=== PATIENT | female | born 2005 | race Caucasian/White ===

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

== ENCOUNTER 2025-02-03 06:05 | Emergency (ER) | payer BC, MEDICAID, SELFPAY ==
--- OUTSIDE RECORDS SUMMARY | 2025-02-03 06:08 | XMS_ITS | Clinical Summary ---
Author Organization [facility] Address [address] [place] [address] Care Team Providers Care Pharmacy Coordinator Name Role Phone Benito Ernst Primary Care Provider [phone] Allergies No known active allergies Medications No known medications Active Problems Problem Noted Date Diagnosed Date Hypothyroidism (acquired) 11/14/2024 Prediabetes 11/14/2024 Morbid obesity with BMI of 40.0-44.9, adult 10/2024 History of anemia 11/11/2024 Regular astigmatism, bilateral 06/09/2024 Myopia, bilateral 06/09/2024 Encounters Date Type Department Care Team Description 11/18/2024 Telephone [facility] [place] [address] [place] [address] Staff, Tami Bariatric Weight Management 11/11/2024 1:00 PM CDT Office Visit [facility] [address] [place] [address] Benito Ernst PA Physical (Patient had baby seven months ago and would like labs) 11/11/2024 Travel from Last 3 Months Immunizations Immunization Administration Dates Next Due COVID-19 vaccine (Pfizer-Bio NTech 30mcg/0.3mL) 12YO+ BIVALENT PF, MDV 12/25/2021 COVID-19 vaccine (Pfizer-Bio NTech 30mcg/0.3mL) 12YO+ AYDIN-SUCROSE PF, MDV 12/01/2020,11/10/2020 DTaP 12/01/2006, 6,2005,10/01 HIB PRP-OMP (PedvaxHIB) 03/05/2006,2005, HPV 9 (Gardasil 9) 12/25/2021 Hepatitis A (Peds) 12/25/2021,02/16/2007, 007 Hepatitis B (Peds) 12/25/2021, 6,2005,08/01 Hib Conjugate, Unspecified 07/31/2009 Human Papilloma Virus Vaccine 11/19/2017, 017 Inactivated Polio Vaccine 12/25/2021,,03/05/2006,12/18,2005 MENINGOCOCCAL VACCINE 2 VIAL 2MO-55YO (MENVEO) 12/25/2021,08/30/2016 MMR 03/11/2024, 2,07/31/2009,08/05 Pneumococcal conj 13-Valent (Prevnar 13) 01/31/2007,10/31/2006,08/05/2006,12/18 Tdap 01/02/2024,12/25/2021,08/30/2016 Varicella Vaccine 03/24/2024,,02/10/2007,08/04 Family History Medical History Relation Name Comments Other Father baratric lanar y Other Half-Sister x 2 1 has epilepsy Bipolar disorder Maternal Grandfather Diabetes Maternal Grandmother prediab etes Glaucoma Maternal Grandmother Hypertension Maternal Grandmother Asthma Mother Other Mother bariatric surge ry Good Health Son Relation Name Status Comments Father Alive Half-Sister x 2 Alive Maternal Grandfather Alive Maternal Grandmother Alive Mother Alive Paternal Grandfather Alive Paternal Grandmother Alive Son Alive Social History Tobacco Use Types Packs/Day Years Used Date Smoking Tobacco: Never Passive Smoke Exposure: Never Smokeless Tobacco: Never Tobacco Cessation:Counseling Given: No Alcohol Use Standard Drinks/Week Comments Never 0 (1 standard drink = 0.6 oz pur e alcohol) PHQ-2 Answer Date Recorded PHQ-2 TOTAL SCORE 0 11/11/2024 Social Connections Answer Date Recorded Do you often feel lonely or isolated from those around you? 0 11/11/2024 Financial Resource Strain Answer Date R ecorded Difficulty of Paying Living Expenses 3 11/11/2024 Difficulty of Paying Living Expenses Not on file 11/11/2024 Food Insecurity Answer Date Recorded Do you worry your food will run out before you are able to buy more? 1 11/11/2024 Transportation Needs Answer Date Record ed Does lack of transportation keep you from medica l appointments? 1 11/11/2024 Does lack of transportation keep you from work, meetings or getting things that you need? 1 11/11/2024 Housing Stability Answer Date Recorded What is your housing situation today? 1 11/11/2024 Utilities Answer Date Recorded Do you have trouble paying f or utilities (for example, heat, electricity, water, phone)? 1 11/11/2024 Comments No Sex and Gender Information Value Date Recorded Sex Assigned at Not on file Legal Sex Female 2:53 PM CDT Gender Identity Not on file Sexual Orientation Not on file Occupation Industry Job Start Date Job End Date Works on floor doing whatever is needed Not on file N ot on file Not on file Obstetrics History Last Filed Vital Signs Vital Sign Reading Time Taken Comments Blood Pressure 120/80 11/11/2024 1:14 PM CDT Pulse 64 11/11/2024 1:14 PM CDT Temperature - - Respiratory Rate - - Oxygen Saturation 97% 03/11/2023 12:01 PM JEWEL OLIVING MACHINE OPERATOR Inhaled Oxygen Concentration - - Weight 124.3 kg (274 lb) 11/11/2024 1:14 PM CDT Height 166.4 cm (5' 5.5) 11/11/2024 1:14 PM CDT Body Mass Index 44.9 11/11/2024 1:14 PM CDT Plan of Treatment Health Maintenance Due Date Last Done Comments Hepatitis C screening for ag e 18-79 07/31/2023 Chlamydia for age 16-24 03/13/2024 03/13/2023 Influenza Vaccine (#1) 2024 BMI (ht and wt on same day) for age 18+ 11/11/2025 11/11/2024 Depression screening for age 12+ 11/11/2025 11/12/19 25, 11/25/2022 Well Child Check for age 3-20 11/11/2025 11/11/2024, 11/25/2022 Tetanus booster 01/01/2034 01/02/2024, 12/07, 08/30/2016 RSV vaccine for adults or (1 - 1-dose 75+ series) 2080 Pneumococcal series for age 6-49 Completed 01/31/2007, 10/31/2006, 08/05/2006, Additional history exists HPV series for age 9-45 Completed 12/26/19, 11/19/2017, 08/30/2016 Hepatitis B series for 19+ Completed 12/25, 03/05/2006, 2005, Additional history exists Meningococcal series for age 11-21 Completed 2021, 08/30/2016 HIV for age 15-65 Completed 03/13/2023 Procedures Procedure Name Priority Date/Time Associated Diagnosis Comments CBC WITH AUTO DIFFERENTIAL Routine 11/11/2024 2:23 PM CDT Encounter for well adult exam without abnormal findings History of anemia LIPID PANEL W REFLEX MEASURED LDL Routine 11/11/2024 2:23 PM CDT Screening for cholesterol level CBC WITH AUTO DIFFERENTIAL Routine 11/11/2024 2:23 PM CDT Encounter for well adult exam without abnormal findings History of anemia HEMOGLOBIN A1C Routine 11/11/2024 2:23 PM CDT Prediabetes TSH WITH REFLEX Routine 11/11/2024 2:23 PM CDT Hypothyroidism (acquired) ANTI HIV 1/2 Routine 03/13/2023 9:35 AM JEWEL OLIVING MACHINE OPERATOR Routine screening for STI (sexually transmitted infection) GC CHLAMYDIA TRACH PROBE Routine 03/13/2023 9:32 AM JEWEL OLIVING MACHINE OPERATOR Routine screening for STI (sexually transmitted infection) from Last 3 Months or Most Recently Relevant to Health Maintenance Results * (ABNORMAL) CBC WITH AUTO DIFFERENTIAL (11/11/2024 2:23 PM CDT) Pathologist [facility] WHITE BLOOD CELL COUNT 8.9 3.8 - 10.8 Thousand/ uL 11/12/2024 3:36 AM CDT [facility] RED BLOOD CELL COUNT 4.70 3.80 - 5.10 Million/u L 11/12/2024 3:36 AM CDT [facility] HEMOGLOBIN 11.6(L) 11.7 - 15.5 g/dL 11/12/2024 3:36 AM CDT [facility] HEMATOCRIT 36.5 35.0 - 45.0 % 11/12/2024 3:36 AM CDT [facility] MCV 77.7(L) 80.0 - 100.0 fL 11/12/2024 3:36 AM CDT [facility] MCH 24.7(L) 27.0 - 33.0 pg 11/12/2024 3:36 AM CDT [facility] MCHC 31.8(L) 32.0 - 36.0 g/dL 11/12/2024 3:36 AM CDT [facility] Comment: For adults, a slight decrease in the calculated MCHC value (in the range of 30 to 32 g/dL) is most likely not clinically significant; however, it should be interpreted with caution in correlation with other red cell parameters and the patient's clinical condition. RDW 15.0 11.0 - 15.0 % 11/12/2024 3:36 AM CDT [facility] PLATELET COUNT 417(H) 140 - 400 Thousand/ uL 11/12/2024 3:36 AM CDT [facility] MPV 10.2 7.5 - 12.5 fL 11/12/2024 3:36 AM CDT [facility] NEUTROPHILS 65.3 % 11/12/2024 3:36 AM CDT [facility] LYMPHOCYTES 26.3 % 11/12/2024 3:36 AM CDT [facility] MONOCYTES 5.8 % 11/12/2024 3:36 AM CDT [facility] EOSINOPHILS 2.1 % 11/12/2024 3:36 AM CDT [facility] BASOPHILS 0.5 % 11/12/2024 3:36 AM CDT [facility] ABSOLUTE NEUTROPHILS 5812 1500 - 7800 cells/uL 11/12/2024 3:36 AM CDT [facility] ABSOLUTE LYMPHOCYTES 2341 850 - 3900 cells/uL 11/12/2024 3:36 AM CDT [facility] ABSOLUTE MONOCYTES 516 200 - 950 cells/uL 11/12/2024 3:36 AM CDT [facility] ABSOLUTE EOSINOPHILS 187 15 - 500 cells/uL 11/12/2024 3:36 AM CDT [facility] ABSOLUTE BASOPHILS 45 0 - 200 cells/uL 11/12/2024 3:36 AM CDT [facility] Blood BLOOD SPECIMEN / Unknown [facility] / Unknown 11/11/2024 2:23 PM CDT 11/11/2024 2:23 PM CDT Benito MONTANEZ HEMATOLOGY Final Resul t Performing Organization Address [facility] de Phone Number [facility] [address] [address], * (ABNORMAL) HEMOGLOBIN A1C (11/11/2024 2:23 PM CDT) HEMOGLOBIN A1C 6.0(H) <5.7 % 11/12/2024 3:55 AM CDT [facility] Comment: For someone without known diabetes, a hemoglobin A1c value between 5.7% and 6.4% is consistent with prediabetes and should be confirmed with a follow-up test. For someone with known diabetes, a value <7% indicates that their diabetes is well controlled. A1c targets should be individualized based on duration of diabetes, age, comorbid conditions, and other considerations. This assay result is consistent with an increased risk of diabetes. Currently, no consensus exists regarding use of hemoglobin A1c for diagnosis of diabetes for children. Blood BLOOD SPECIMEN / Unknown [facility] / Unknown 11/11/2024 2:23 PM CDT 11/11/2024 2:23 PM CDT Benito MONTANEZ CHEMISTRY Final Resul t Performing Organization Address [facility] Co de Phone Number [facility] [address] [address], * TSH WITH REFLEX (11/11/2024 2:23 PM CDT) TSH W/REFLEX TO FT4 3.82 mIU/L 11/12/2024 5:58 AM CDT [facility] Comment: Reference Range 1-19 Years 0.50-4.30 Ranges First trimester 0.26-2.66 Second trimester 0.55-2.73 Third trimester 0.43-2.91 Blood BLOOD SPECIMEN / Unknown [facility] / Unknown 11/11/2024 2:23 PM CDT 11/11/2024 2:23 PM CDT Benito Ernst PA CHEMISTRY Final Resul t [facility] [address] [place] [address], * (ABNORMAL) LIPID PANEL W REFLEX MEASURED LDL (11/11/2024 2:23 PM CDT) CHOLESTEROL, TOTAL 119 <170 mg/dL 11/12/2024 5:38 AM CDT [facility] TRIGLYCERIDES 98(H) <90 mg/dL 11/12/2024 5:38 AM CDT [facility] HDL CHOLESTEROL 47 >45 mg/dL 5:38 AM CDT [facility] NON HDL CHOLESTEROL 72 <120 mg/dL (calc) 11/12/2024 5:38 AM CDT [facility] Comment: For patients with diabetes plus 1 major ASCVD risk factor, treating to a non-HDL-C goal of <100 mg/dL (LDL-C of <70 mg/dL) is considered a therapeutic option. CHOL/HDLC RATIO 2.5 <5.0 (calc) 11/12/2024 5:38 AM CDT [facility] LDL-CHOLESTEROL 54 <110 mg/dL (calc) 11/12/2024 5:38 AM CDT [facility] Comment: LDL-C is now calculated using the Haris-Jovanni calculation, which is a validated novel method providing better accuracy than the Friedewald equation in the estimation of LDL-C. Haris SS et al. KATHARINE. 2013;310(19): 6095-0955 (http://education.Speek.SpectralCast/faq/NHG931) Blood BLOOD SPECIMEN / Unknown [facility] / Unknown 11/11/2024 2:23 PM CDT 11/11/2024 2:23 PM CDT Benito MONTANEZ CHEMISTRY Final Resul t [facility] [address] [address], [place] [phone] * ANTI HIV 1/2 (03/13/2023 9:35 AM JEWEL OLIVING MACHINE OPERATOR) HIV-1/HIV-2 SCREEN Non-Reacti ve Non-Reacti ve 03/13/2023 2:41 PM JEWEL OLIVING MACHINE OPERATOR [facility] Comment:HIV-1 p24 and HIV-1/ HIV-2 Ab Not Detected. Blood BLOOD SPECIMEN / Unknown Venipuncture / Unknown 03/13/2023 9:35 AM JEWEL OLIVING MACHINE OPERATOR 03/13/2023 9:47 AM JEWEL OLIVING MACHINE OPERATOR Hubert Moreno MD SEND OUTS Final Resu lt Performing Organization Address City/[facility]/ZIP Co de Phone Number [facility] [address] [place] [address], * GC & CHLAMYDIA DNA PCR [[id number]] (03/13/2023 9:32 AM JEWEL OLIVING MACHINE OPERATOR) CHLAMYDIA PROBE Negative 8:08 PM JEWEL OLIVING MACHINE OPERATOR [facility] N GONORRHOEAE PROBE Negative 03/13/2023 8:08 PM JEWEL OLIVING MACHINE OPERATOR [facility] Other URINE SPECIMEN / Unknown Non-Blood / Unknown 03/13/2023 9:32 AM JEWEL OLIVING MACHINE OPERATOR 03/13/2023 9:32 AM JEWEL OLIVING MACHINE OPERATOR Hubert Moreno MD MICROBIOLOGY Final Resu lt [facility] [address] [place] [address], from Last 3 Months or Most Recently Relevant to Health Maintenance Insurance [place] [facility] [place] Care Teams Pharmacy Coordinator Relationship Specialty [place] [address] [place] [address] PCP - General Physician Wire Spiral Binder 11/04/24
--- OUTSIDE RECORDS SUMMARY | 2025-02-03 06:08 | XMS_ITS | Clinical Summary ---
Author Organization [facility] Address [address] [place] [address] Care Team Providers Care Industrial Court Magistrate Name Role Phone No Ref-Primary, Physician Primary Care Provider Allergies No known active allergies Medications aspirin (ASA) 81 MG chewable tablet Take 81 mg by mouth daily. Active Vit-Fe Fumarate-FA ( MULTIVITAMIN PLUS IRON) 27-1 MG TABS Take 1 tablet by mouth daily. Active nitroFURantoin macrocrystal-mono hydrate (MACROBID) 100 MG capsuleIndication s:Urinary Tract Infection Take 1 capsule (100 mg) by mouth 2 times daily. 13 capsule 4 Active Active Problems Problem Noted Date Diagnosed Date Encounter for triage in patient 024 Encounters Date Type Department Care Team Description 11/24/2024 2:10 AM CDT - 11/24/2024 2:56 AM CDT Emergency [facility] Emergency Dept [address] [place] [address] Brittany Caal DO COVID-19 virus infection (Primary Dx) Discharge Disposition: Home or Self Care 11/24/2024 Travel 11/15/2024 3:39 AM CDT - 11/15/2024 5:26 AM CDT Emergency [facility] Emergency Dept [address] [place] [address] Erasto Weiss MD Ingrown toenail of right foot (Primary Dx) Discharge Disposition: Home or Self Care 11/15/2024 Travel from Last 3 Months Social History Tobacco Use Types Packs/Day Years Used Date Smoking Tobacco: Never Assessed Adolescent Education Answer Date Record ed Getting School Help Needed Not on file 07/31 Comments No Sex and Gender Information Value Date Recorded Sex Assigned at Not on file Legal Sex Female 10:40 AM CDT Gender Identity Not on file Sexual Orientation Not on file Last Filed Vital Signs Vital Sign Reading Time Taken Comments Blood Pressure 133/79 11/24/2024 2:56 AM CDT Pulse 99 11/24/2024 2:56 AM CDT Temperature 36.6 C (97.9 F) 11/24/2024 12:36 AM CDT Respiratory Rate 18 11/24/2024 2:54 AM CDT Oxygen Saturation 100% 11/24/2024 2:54 AM CDT Inhaled Oxygen Concentration - - Weight 121.7 kg (268 lb 4.8 oz) 025 12:36 AM CDT Height 165.1 cm (5' 5) 11/24/2024 12:3 6 AM CDT Body Mass Index 44.65 11/24/2024 12:36 AM CDT Plan of Treatment Health Maintenance Due Date Last Done Comments ADVANCE CARE PLANNING 2005 ANNUAL REVIEW OF HM ORDERS 2005 MENINGITIS B VACCINE (1 of 2 - Standard) 2021 HEPATITIS C SCREENING 07/31/2023 CHLAMYDIA SCREENING 03/13/2024 03/13/2023 PHQ-2 (once per calendar year) 2024 COVID-19 VACCINE (4 - 2024-2 6 season) 2024 12/25/2021, 12/01/2020, 11/10/2020 INFLUENZA VACCINE (#1) 2024 YEARLY PREVENTIVE VISIT 11/11/2025 11/11/2024, 11/25 DTAP/TDAP/TD VACCINE (8 - Td or Tdap) 01/01/2034 01/02/2024, 12/25/2021, 08/30/2016, Additional history exists ZOSTER VACCINE (1 of 2) 07/31/2055 PNEUMOCOCCAL VACCINE: PEDIAT RICS (0 to 5 YEARS) AND AT-RISK PATIENTS (6 to 49 YEARS) Completed 01/31/2007, 10/31/2006, 08/05/2006, Additional history exists HIB VACCINE Completed 07/31/2009, 02/06, 2005, Additional history exists HEPATITIS B VACCINE Completed 12/25/2021, 03/05/2006, 2005, Additional history exists HPV VACCINE Completed 12/25/2021, 11/05, 08/30/2016 IPV VACCINE Completed 12/25/2021, 07/07, 03/05/2006, Additional history exists MENINGITIS VACCINE Completed 12/25/2021, 08/30/2016 HIV SCREENING Completed 03/13/2023 VARICELLA VACCINE Completed 03/24/2024, , 02/10/2007, Additional history exists Procedures Procedure Name Priority Date/Time Associated Diagnosis Comments GROUP A STREPTOCOCCUS PCR THROAT SWAB STAT 11/24/2024 12:39 AM CDT INFLUENZA A/B, RSV AND SARS-COV2 PCR STAT 11/24/2024 12:39 AM CDT [place] EXCISION SKIN OF NAIL FOLD Routine 11/15/2024 6:05 AM CDT from Last 3 Months Results * (ABNORMAL) Influenza A/B, RSV and SARS-CoV2 PCR (COVID-19) Nasopharyngeal (11/24/2024 12:39 AM CDT) Influenza A PCR Negative Negative 11/24/2024 1:37 AM CDT [facility] Influenza B PCR Negative Negative 11/24/2024 1:37 AM CDT [facility] RSV PCR Negative Negative 11/24/2024 1:37 AM CDT [facility] SARS CoV2 PCR Positive(A) Negative 11/24/2024 1:37 AM CDT [facility] Comment:POSITIVE: SARS-CoV-2 (COVID-19) RNA detected, presumed positive. Swab NASOPHARYNGEAL STRUCTURE / Unknown Non-blood Collection / Unknown 11/24/2024 12:39 AM CDT 11/24/2024 12:48 AM CDT Narrative [facility] - 11/24/2024 1:37 AM CDT Testing was performed using the Xpert Xpress CoV2/Flu/RSV Assay on the [employer]pert Instrument. This test should be ordered for the detection of SARS- CoV2, influenza, and RSV viruses in individuals with signs and symptoms of respiratory tract infection. This test is for in vitro diagnostic use under the [place] FDA for laboratories certified under CLIA to perform high or moderate complexity testing. This test has been [place] FDA cleared. A negative result does not rule out the presence of PCR inhibitors in the specimen or target RNA in concentration below the limit of detection for the assay. If only one viral target is positive but coinfection with multiple targets is suspected, the sample should be re-tested with another FDA cleared, approved, or authorized test, if coninfection would change clinical management. This test was validated by the [facility]. These laboratories are certified under the Clinical Laboratory Improvement Amendments of 1988 (CLIA-88) as qualified to perfom high complexity laboratory testing. Brittany Caal DO LAB - MICRO GENERAL ORDERA BLES Final Result LABORATORY [facility] [address] [facility] (1st floor, no room number) [place] [address], [facility] * Group A Streptococcus PCR Throat Swab (11/24/2024 12:39 AM CDT) Group A strep by PCR Not Detected Not Detected 11/24/2024 1:24 AM CDT LABORATORY Swab STRUCTURE OF ANTERIOR REGION OF NECK / Unknown Non-blood Collection / Unknown 11/24/2024 12:39 AM CDT 11/24/2024 12:48 AM CDT [facility] - 11/24/2024 1:24 AM CDT The Xpert Xpress Strep A test, performed on the [employer] Systems, is a rapid, qualitative in vitro diagnostic test for the detection of Streptococcus pyogenes (Group A -hemolytic Streptococcus, Strep A) in throat swab specimens from patients with signs and symptoms of pharyngitis. The Xpert Xpress Strep A test can be used as an aid in the diagnosis of Group A Streptococcal pharyngitis. The assay is not intended to monitor treatment for Group A Streptococcus infections. The Xpert Xpress Strep A test utilizes an automated real-time polymerase chain reaction (PCR) to detect Streptococcus pyogenes DNA. us Brittany Reggie Caal DO LAB - MICRO GENERAL ORDERA BLES Final Result [facility] [address] [facility] (1st floor, no room number) [place] [address], [facility] * [place] EXCISION SKIN OF NAIL FOLD (11/15/2024 6:05 AM CDT) Erasto Felipe MD - 11/15/2024 6:05 AM CDT Erasto Weiss MD 11/15/2024 6:07 AM [facility] Nail Removal Date/Time: 11/15/2024 6:05 AM Performed by: Erasto Weiss MD Authorized by: Erasto Weiss MD Risks, benefits and alternatives discussed. LOCATION: Foot: R big toe PRE-PROCEDURE DETAILS: Skin preparation: Alcohol ANESTHESIA (see MAR for exact dosages): Anesthesia method: Nerve block Block needle gauge: 27 G Block anesthetic: Lidocaine 1% w/o epi Block injection procedure: Anatomic landmarks identified, introduced needle and anatomic landmarks palpated Block outcome: Anesthesia achieved NAIL REMOVAL: Nail removed: Partial Nail removed location: medial and lateral. INGROWN NAIL: Wedge excision of skin: yes POST-PROCEDURE DETAILS: Dressinx4 sterile gauze us Erasto Weiss MD [place] [employer] Final Result from Last 3 Months Insurance [facility] Care Teams Industrial Court Magistrate Relationship Specialty Start Date End Date No Ref-Primary, Physician PCP - General 08/01/23
[2025-02-03 06:43] VITALS: BP 120/79; PULSE 103; RESP 18; TEMP 36.9; O2SAT 98; BMI 35.0
--- NOTE | 2025-02-03 07:06 | ED_ITS ---
HPI - Skin/Abscess/Foreign Bdy General Time Seen by Provider: 07:06 Date Seen: 02/03/25 Chief complaint: Skin/Abscess/Foreign Body Stated complaint: left upper arm/armpit Time Seen by Provider: 02/03/25 07:06 Source: patient and deaf interpreter History of Present Illness HPI narrative: Hodan is a 19 yo female who presents to the ED for evaluation of left upper armpit wound. Patient reports that approximately 2 weeks ago she developed a pimple, redness, and swelling to her left axillary region. Patient states that ~ 1.5 weeks ago it popped and has been draining since then with foul smelly/pus drainage. Patient denies any fever, chills, no other complaints. Reports no recent hospitalization, no prior antibiotics, no history of similar infections in the past. Related Data Home Medications ?Medication ?Instructions ?Recorded ?Confirmed vits 75-iron 28 mg-folic 1 pkg PO DAILY 07/2803/24/24 acid 800 mcg-omega-3 oral combo pack (One A Day Women's DHA) Previous Rx's ?Medication ?Instructions ?Recorded acetaminophen 500 mg tablet 1,000 mg (2 x 500 mg) PO Q 6H PRN 03/12/24 #0 tabs docusate sodium 100 mg capsule 100 mg PO DAILY #90 cap s 03/12/24 ferrous sulfate 325 mg (65 mg 325 mg PO Q48H #30 tabs 03/12/24 iron) tablet ibuprofen 600 mg tablet 600 mg PO Q6H PRN #60 tabs 1 05/13/23 nitrofurantoin 100 mg PO BID #10 caps 03/25 monohydrate/macrocrystals 100 mg capsule (Macrobid) cephalexin 500 mg capsule 500 mg PO TID 7 days #21 cap s 02/03/25 Allergies Allergy/AdvReac Type Severity Reaction Status Date / Time No Known Drug Allergies Allergy Verified 02/03/25 06:45 Review of Systems Narrative: Past medical history, past surgical history, medications, allergies, family history, and social history were reviewed with the patient. No additional pertinent items. A medically appropriate review of systems was performed with pertinent positives and negatives noted in HPI, all other systems negative. [facility] Medical History (Updated 02/03/25 @ 08:41 by Ashanti Ford MD) Obesity, Class III, BMI 40-49.9 (morbid obesity) ?E66.01 - Morbid (severe) obesity due to excess calories (ICD-10) Hypothyroid ?E03.9 - Hypothyroidism, unspecified (ICD-10) Rash ?R21 - Rash and other nonspecific skin eruption (ICD-10) Surgical History H/O wrist surgery ?Z98.890 - Other specified postprocedural states (ICD-10) Social History Narrative: [place]-speaking. 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 What is your current living situation?: I presently have a place to live Problems where you live: no known problems In the past 12 months, utilities in danger of being shut off: no In past 12 months, lack of transportation kept you from medical appts, meetings, work, or getting things needed for daily living: no In the past 12 mos, have been you worried that your food would run out before you had money to buy more?: never true In the past 12 mos, the food you bought just didn't last and you didn't have money to buy more?: never true Smoking Status: Never smoker Do you use any of these nicotine containing products: None Second hand tobacco smoke exposure: No How often do you have a drink containing alcohol: never How often do you have six or more drinks on one occasion: Never AUDIT-C Alcohol total score: 0 Non-prescribed substance use: denies use How often does anyone, including family, friends and others, physically hurt you : never How often does anyone, including family, friends and others, insult or talk down to you: never How often does anyone, including family, friends and others, threaten you with harm: never How often does anyone, including family, friends and others, scream or curse at you: never service: No Exam Narrative: Exam Narrative: General: Afebrile, no acute distress HEENT: Normocephalic, atraumatic, conjunctiva normal. MMM Neck: non-tender, supple Cardio: regular rate. regular rhythm Resp: Normal work of breathing, no respiratory distress, lungs clear bilaterally, no wheezing, rhonchi, rales Chest/Back: no visual signs of trauma, no midline tenderness, no CVA tenderness Abdomen: soft, non distension, no tenderness, no peritoneal signs Neuro: alert and fully oriented. CN II-XII grossly intact. Grossly normal strength and sensation in all extremities. MSK: no deformities. Normal range of motion Integumentary/Skin: left axially region with area of what appears to be prior abscess/pimple that is now open and draining - yellow foul smelling discharge, mild surrounding erythema, no area of fluctuance or abscess. Psych: normal affect, normal behavior Const: Vital Signs, click to edit/add: Vital Signs - 24 hr 02/03/25 06:43 Temperature 98.5 F Pulse Rate [Pulse Oximeter] 103 H Respiratory Rate 18 Blood Pressure [Ri t Upper Arm] 120/79 Pulse Oximetry 98 Oxygen Delivery Me thod Room Air Course Vital Signs Vital signs: Initial Vital Signs Temperature 98.5 F 02/03/25 06:43 Temperature Source Temporal Artery Scan 02/03/25 06:43 Pulse Rate 103 H 02/03/25 06:43 Respiratory Rate 18 02/03/25 06:43 Blood Pressure 120/79 02/03/25 06:43 Blood Pressure Mean 92 02/03/25 06:43 Blood Pressure Position Sitting 02/03/25 06:43 Pulse Oximetry 98 02/03/25 06:43 Oxygen Delivery Method Room Air 02/03/25 06:43 Vital Signs Temperature 98.5 F 02/03/25 06:43 Pulse Rate 103 H 02/03/25 06:43 Respiratory Rate 18 02/03/25 06:43 Blood Pressure 120/79 02/03/25 06:43 Pulse Oximetry 98 02/03/25 06:43 Oxygen Delivery Method Room Air 02/03/25 06:43 Temperature 98.5 F 02/03/25 06:43 Pulse Rate 103 H 02/03/25 06:43 Respiratory Rate 18 02/03/25 06:43 Blood Pressure 120/79 02/03/25 06:43 Pulse Oximetry 98 02/03/25 06:43 Oxygen Delivery Method Room Air 02/03/25 06:43 MDM - Skin/Abscess/Foreign Bdy MDM Narrative Medical decision making narrative: Hodan is a 19 old female who presents the emergency department for left arm pit wound. Upon arrival patient is nontoxic appearing,, no distress. Patient here wound to her left axillary region, with foul smelling yellow drainage. Patient reports previous abscess/pimple which ruptured and has been draining. Examination suggestive of draining abscess with mild erythema. Given location, appearance also concern for possible Hidradenitis suppurativa. Patient denies history of prior episodes. At this time recommend continue supportive care with warm compresses, cleaning with antibacterial soap, antibiotics, close outpatient follow-up for further evaluation, recheck to ensure proper healing. Strict return precautions discussed. Patient since agrees the plan. Medical Records Attestation: I reviewed the patient's medical records. Discharge Plan Discharge Clinical Impression: Abscess Patient Disposition: Home, Self-Care Condition: Stable Additional Instructions: Please follow-up with your primary care provider in the next 3-5 days for further evaluation and follow-up. Please call to schedule appointment. Please alternate taking Tylenol ibuprofen as needed for pain. Please keep area clean. Please wash with antibacterial soap (ex Dove). Please take antibiotics as directed. Return to the emergency department if any worsening symptoms. It was a pleasure taking care of you today. We hope you feel better soon. Prescriptions: New cephalexin 500 mg capsule 500 mg PO TID 7 Days Qty: 21 0RF No Action One A Day Women's DHA 28 mg iron- 800 mcg combo pack 1 pkg PO DAILY acetaminophen 500 mg Tablet 1,000 mg PO Q6H PRNQty: 0 0RF ferrous sulfate 325 mg (65 mg iron) Tablet 325 mg PO Q48H Qty: 30 0RF docusate sodium 100 mg Capsule 100 mg PO DAILY Qty: 90 1RF ibuprofen 600 mg Tablet 600 mg PO Q6H PRNQty: 60 0RF nitrofurantoin monohyd/m-cryst [Macrobid] 100 mg capsule 100 mg PO BID Qty: 10 0RF Rx Instructions: must administer with a meal/food Follow Up/Referrals: Provider,Not a Local [Primary Care Provider, Family Practice] Stand Alone Forms: [employer] Info Instructions
== END 2025-02-03 09:06 | disposition home or self-care (01) ==
PROVIDERS: Emergency Provider Emergency Medicine
DX: L02.412 Cutaneous abscess of left axilla (principal)
CPT/HCPCS: 99283; 99284